=== PATIENT | male | born 1940 | race Caucasian/White ===

== ENCOUNTER 2016-05-12 08:05 | Inpatient (IN) | payer MEDICARE, OTHER ==
[2016-05-08 16:42] LABS: HEMOGLOBIN 12.3 g/dL (13.6-17.8)
[2016-05-08 16:51] LABS: CHLORIDE, SERUM 108 MMOL/L (96-112); CO2 (CARBON DIOXIDE) 29 MMOL/L (24-34); CREATININE 0.93 MG/DL (0.70-1.30); GFR AFRICAN AMERICAN 94 ML/MIN (>=60); GFR NON AFRICAN AMERICAN 81 ML/MIN (>=60); GLUCOSE, SERUM 78 MG/DL (60-99); POTASSIUM, SERUM 4.1 MMOL/L (3.5-5.3); SODIUM, SERUM 142 MMOL/L (135-148)
[2016-05-08 16:52] LABS: BUN (BLOOD UREA NITROGEN) 16 MG/DL (6-23)
--- NOTE | ~2016-05-12 | OP ---
Record Of Operation [facility] [address] [place]. [address] NAME: JUAN DAVID FARRELL : 44 STATUS : DIS IN PAT#: [id number] AGE: 75 ADM/REG DATE : 05/12/16 MR#: [id number] REPORT SERV DATE: 05/16/16 DICTATED BY: MARIETTA RYAN DATE: 05/16/16 REPORT STATUS : Draft TRANSCRIBED BY: MODL DATE: 05/16/16 DATE OF PROCEDURE: 05/12/2016 SURGEON: Marietta Ryan M.D. AUTOMOTIVE DESIGN DRAFTER: Rochelle. PREPROCEDURE DIAGNOSIS: Right carotid stenosis grade 3, asymptomatic. POSTPROCEDURE DIAGNOSIS: Right carotid stenosis grade 3, asymptomatic. PROCEDURE PERFORMED: Right carotid endarterectomy. ANESTHETIC: General. SPECIMENS: Right carotid plaque. BLOOD LOSS: 100 mL. COMPLICATIONS: None. INDICATIONS: Juan David Farrell is a 75-year-old, recently underwent CABG and carotid as a combined procedure last month. He re-presented back to the office with continued grade 3 carotid stenosis on the right. He was offered endarterectomy for stroke risk reduction. Risks, benefits, and alternatives were discussed. He understood and wished to proceed. OPERATIVE COURSE: The patient was brought to the operating room and placed in supine position on the operating table. The patient had general anesthetic without complications. The right neck was prepped and draped in sterile fashion. A time-out was performed to identify the correct patient, procedure, and site. We began by using ultrasound to identify the course of the carotid artery and marked at the location of the bifurcation and then made an incision on the anterior neck centered at this location. The incision was deepened with cautery through the subcutaneous tissue and platysma muscle. We found the sternocleidomastoid and dissected along its medial border and retracted it laterally. We then dissected along the jugular vein, took down the facial vein between ligatures and retracted the jugular vein laterally. We then found the common carotid artery and dissected it cephalad and caudad. We dissected distally and got separate control of the internal carotid and external carotid arteries. The hypoglossal nerve was easily identified and was draped over the bifurcation. We gave IV heparin and allowed adequate time for circulation. We allowed the patient's blood pressure to go 20 points higher than baseline. We then clamped the internal carotid, external carotid, and common carotid arteries. We made an arteriotomy on the anterolateral surface of the common carotid artery and extended it cephalad into the internal carotid and caudad into the common carotid. We endarterectomized the vessel transecting the plaque proximally everting it from the external carotid artery and then feathering it distally from the internal carotid. 7-0 tacking sutures were used to tack the distal endpoint down. We removed any smooth muscle fibers on the endarterectomized Record Of Operation [address] [place]. [address] NAME: JUAN DAVID FARRELL : 44 STATUS : DIS IN PAT#: [id number] AGE: 75 ADM/REG DATE : 05/12/16 MR#: [id number] REPORT SERV DATE: 05/16/16 DICTATED BY: MARIETTA RYAN DATE: 05/16/16 REPORT STATUS : Draft TRANSCRIBED BY: PRITI DATE: 05/16/16 surface. We then brought up a bovine pericardial patch and sewed it into place using 6-0 Prolene suture in a running fashion. Prior to completion, all vessels were flushed and flushed with heparinized saline. We allowed the patient's blood pressure to come back down to normal and then we completed the anastomosis and released the clamps to the external followed by the common carotid artery. After several beats of the cardiac cycle, we released the clamp to the internal as well. Hemostasis was excellent. We irrigated the wound and we closed the platysmal layer with interrupted Vicryl suture. The skin was closed with 4-0 subcuticular Monocryl and Dermabond. The patient tolerated the procedure well. He was awakened and moved all extremities, and was transferred to ICU in stable condition. NEY/PRITI Marietta Ryan MD / [id number] CC: MD Olegario Lau Anders Eugene
[~2016-05-12 08:05] MED LIST: ASAB PO; COREG3 PO; LIPITOR20 PO; NTG150 SL; PRIN5 PO; VITC500 PO
[2016-05-12 20:20] LABS: BASOPHILS 0.1 %; BASOPHILS ABSOLUTE 0.01 10/3/uL (0.0-0.16); EOSINOPHILS 0 %; IMMATURE GRANULOCYTES 0.2 %; IMMATURE GRANULOCYTES ABSOLUTE 0.02 10/3/uL (0.0-0.11); LYMPHOCYTES 8.9 %; LYMPHOCYTES ABSOLUTE 0.74 10/3/uL (0.67-4.30); MEAN CORPUS HGB CONC 32.4 g/dL (32.0-36.0); MEAN CORPUSCULAR HEMOGLOB 31.3 pg (26.0-34.0); MEAN CORPUSCULAR VOLUME 96.3 fL (80-100); MEAN PLATELET VOLUME 10.2 fL (9.2-13.0); MONOCYTES 3.5 %; MONOCYTES ABSOLUTE 0.29 10/3/uL (0.21-1.20); NEUTROPHILS 87.3 %; NEUTROPHILS ABSOLUTE 7.28 10/3/uL (2.02-8.40); PLATELET COUNT 174 10/3/uL (150-400); RBC DISTRIBUTION WIDTH 13.5 % (12.0-16.0); WHITE BLOOD CELLS 8.3 10/3/uL (4.5-10.5)
[2016-05-12 20:25] LABS: HEMATOCRIT 33.9 % (40.0-51.0); MANUAL DIFF NO %; RED CELL COUNT 3.52 10/6/uL (4.7-6.1)
[2016-05-12 20:35] LABS: BUN (BLOOD UREA NITROGEN) 19 MG/DL (6-23); CALCIUM, SERUM 8.2 MG/DL (8.5-10.4); CHLORIDE, SERUM 111 MMOL/L (96-112); CO2 (CARBON DIOXIDE) 25 MMOL/L (24-34); CREATININE 0.99 MG/DL (0.70-1.30); GFR AFRICAN AMERICAN 87 ML/MIN (>=60); GFR NON AFRICAN AMERICAN 75 ML/MIN (>=60); POTASSIUM, SERUM 4.7 MMOL/L (3.5-5.3); SODIUM, SERUM 142 MMOL/L (135-148)
[2016-05-12 20:38] LABS: GLUCOSE, SERUM 125 MG/DL (60-99)
[2016-05-13 04:31] LABS: BUN (BLOOD UREA NITROGEN) 19 MG/DL (6-23); CALCIUM, SERUM 8.2 MG/DL (8.5-10.4); CHLORIDE, SERUM 108 MMOL/L (96-112); CO2 (CARBON DIOXIDE) 24 MMOL/L (24-34); CREATININE 0.91 MG/DL (0.70-1.30); GFR AFRICAN AMERICAN 97 ML/MIN (>=60); GFR NON AFRICAN AMERICAN 83 ML/MIN (>=60); GLUCOSE, SERUM 115 MG/DL (60-99); POTASSIUM, SERUM 4.2 MMOL/L (3.5-5.3); SODIUM, SERUM 141 MMOL/L (135-148)
[2016-05-13] MEDS ORDERED: PCET PO (12:05)
== END 2016-05-13 13:23 | disposition home or self-care (01) | DRG 39 ==
LOC: SDC/OF 08:05 → CVICU 13:58
PROVIDERS: Student in an Organized Health Care Education/Training Program
PROC: 03CK0ZZ Extirpation of Matter from Right Internal Carotid Artery, Open Approach (ICD-10-PCS; 2016-05-12)
PROC: 03CH0ZZ Extirpation of Matter from Right Common Carotid Artery, Open Approach (ICD-10-PCS; principal; 2016-05-12 09:45)
DX: I65.21 Occlusion and stenosis of right carotid artery (principal); J44.9 Chronic obstructive pulmonary disease, unspecified; I10 Essential (primary) hypertension; Z95.1 Presence of aortocoronary bypass graft; F17.210 Nicotine dependence, cigarettes, uncomplicated; I25.10 Atherosclerotic heart disease of native coronary artery without angina pectoris
CPT/HCPCS: 80048; 83735; 85014; 85018; 85025; 87641; 88304; 88311; 93005; A9270-GY; C1768; G0463; J0690; J2250; J2370; J2710; J3010